=== PATIENT | male | born 1945 | race Caucasian/White ===

== ENCOUNTER 2020-05-29 12:57 | Inpatient (IN) | payer MEDICARE, MEDICAID, SELFPAY ==
[2020-05-29] VITALS (13 sets, daily range): BP systolic 92–126; BP diastolic 49–82; PULSE 65–95; RESP 15–26; TEMP 36.6–36.8; O2SAT 90–99; BMI 23.0
--- NOTE | 2020-05-29 13:09 | ECG_ITS ---
[facility] Test Date: 2020-05-29 Pat Name: Soto Washington Department: Room: Gender: Male Pocket Cutter: : 1945 Requested By: Sajan Fatima Order Number: [id number] Chelsi MD: Corine Luke M.D. Measurements Intervals [place] Rate: 88 P: 53 UT: 146 QRS: -49 QRSD: 149 T: 61 QT: 411 QTc: 500 Interpretive Statements SINUS RHYTHM WITH OCCASIONAL PREMATURE COMPLEXES RIGHT BUNDLE BRANCH BLOCK LEFT ANTERIOR FASCICULAR BLOCK [QRS AXIS <= -45, QR IN I, RS IN II] MINIMAL VOLTAGE CRITERIA FOR LVH, CONSIDER NORMAL VARIANT [MEETS CRITERIA IN ONE OF: R(aVL), S(V1), R(V5), R(V5/V6)+S(V1)] POSSIBLE ANTERIOR MYOCARDIAL INFARCTION , PROBABLY OLD [30 ms Q WAVE IN V3/V4, OR R < 0.2 mV IN V4] No previous ECG available for comparison Electronically Signed On 05-29-2020 22:19:55 MEASUREMENT TECHNICIAN by Corine Luke M.D. [id number]
--- NOTE | 2020-05-29 13:09 | XRR_ITS ---
PROCEDURE INFORMATION: Exam: XR Chest, 1 View Exam date and time: 05/29/2020 1:18 PM Age: 74 years old Clinical indication: Chest pain; Prior surgery; Surgery type: Pacemaker TECHNIQUE: Imaging protocol: XR of the chest Views: 1 view. COMPARISON: No relevant prior studies available. FINDINGS: Lungs: Linear densities left lower lobe consistent with atelectasis. No consolidation. Pleural space: Unremarkable. No pleural effusion. No pneumothorax. Heart/Mediastinum: Unremarkable. No cardiomegaly. Bones/joints: Unremarkable. Soft tissues: Cardiac pacemaker left anterior chest. XR/XR chest 1V portable [id number] IMPRESSION: 1. No acute findings. 2. Cardiac pacemaker left anterior chest
[2020-05-29 13:30] LABS: Basophils % 0.2 %; Eosinophils % 0.3 %; Hematocrit 32.1 % (42.0-52.0); Hemoglobin 9.6 g/dL (11.7-16.6); Lymphocytes % 9.2 %; Mean Corpuscular HGB Conc 29.9 g/dL (30.0-36.0); Mean Corpuscular Hemoglobin 28.5 pg (28.0-34.0); Mean Corpuscular Volume 95.3 fL (80-94); Mean Platelet Volume 9.4 fL (7.4-10.4); Monocytes # 0.8 10^3/uL (0.2-0.9); Monocytes % 7.2 %; Neutrophils # 8.81 10^3/uL (1.8-7.7); Neutrophils % 81.8 %; Nucleated Red Blood Cells % 0 %; Platelet Count 241 10^3/cmm (130-400); Red Blood Count 3.37 10^6/uL (4.1-5.3); Red Cell Distribution Width 14.6 % (12.1-15.1); White Blood Count 10.8 10^3/uL (4.0-10.0)
--- NOTE | 2020-05-29 13:45 | W.ED.CHESTPA ---
HPI - Chest Pain General: Chief Complaint: Chest Pain Stated Complaint: CHEST PAIN Time Seen by Provider: 05/29/20 13:05 History of Present Illness: HPI narrative: The patient is a 74-year-old male with past medical history coronary artery disease, multiple MIs and stenting, and a pacemaker. 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 He comes in today complaining of a short episode of left-sided chest pain at home. He took 4 baby aspirin's and did not take a nitroglycerin because the pain went away. He says the pain was midsternal and radiated to the left chest and felt exactly like his previous MIs. He has not had a stress test for approximately 12 years. He has no pain in the ER MD complaint: chest pain Pertinent past history: coronary artery disease and prior MD Timing of current episode: episodic and now resolved Onset: during rest Pain location: substernal Pain radiation: none Quality: heaviness Exacerbating factors: nothing Associated symptoms: Reports no associated symptoms; Deny abdominal pain, dyspnea or palpitations Review of Systems General: Reports: 10 or more systems reviewed and unremarkable except in HPI and below Const: Denies: fatigue Eyes: Denies: change in vision, blurry vision or eye redness ENMT: Denies: throat pain, swelling of lips/tongue, ear or mastoid pain or nasal congestion Card: Denies: chest pain, palpitations, irregular heart rhythm, edema, dyspnea on exertion or orthopnea Resp: Denies: dyspnea, productive cough or non-productive cough GI: Denies: abdominal pain, diarrhea or GI cramping : Denies: flank pain, urinary frequency or urinary urgency Musc: Denies: neck pain, back pain, extremity pain, joint pain, joint redness, limited range of motion or muscle weakness Skin/Breast: Denies: rash, pruritus, erythema, skin pain or skin tenderness Neuro: Denies: headache(s), numbness in extremities, weakness in extremities, sensory changes, difficulty walking, dizziness, confusion or Slurred speech present Psych: Denies: anxiety or depression Endo: Denies: polyuria All/Imm: Denies: urticaria, throat swelling or tongue swelling Physical Exam Const: COMMON NORMALS: no acute distress, average body habitus, patient oriented x3, no limitations, healthy appearing, alert and well nourished GENERAL APPEARANCE: cooperative, comfortable, well kempt and well developed ORIENTATION/CONSCIOUSNESS: Yes awake, Yes oriented to person, Yes oriented to place and Yes oriented to time HENMT: COMMON NORMALS: normocephalic, external ears normal and Normal external nose present HEAD & SCALP: normal to inspection and normocephalic NOSE: Normal external nose present EXTERNAL EAR: Yes external ears normal MOUTH: Normal oral and palatal mucosa present THROAT: posterior oropharynx normal Eye: COMMON NORMALS: Equal, round and reactive pupils present and EOMs intact bilaterally GENERAL EYE: appearance normal, both eyes and all related structures PUPIL: Yes Equal, round and reactive pupils present Neck/C-Spine: COMMON NORMALS: full ROM, no lymphadenopathy, no meningeal signs and no JVD GENERAL: Yes normal visual inspection Lymph: LYMPHATIC: no lymphadenopathy noted Chest: COMMONS NORMALS: normal inspection of the chest and normal palpation of entire chest wall Resp: COMMON NORMALS: normal respiratory effort, No retractions, No use of accessory muscles, clear to auscultation bilaterally and percussion normal EFFORT & INSPECTION: Yes able to speak in complete sentences AUSCULTATION: clear to auscultation bilaterally PERCUSSION: percussion normal Cardio: COMMON NORMALS: no JVD, regular rate, regular rhythm, S1 normal heart sound present, S2 normal heart sound present and Peripheral pulses 2+ throughout RATE: regular rate RHYTHM: regular rhythm HEART SOUNDS: S1 normal heart sound present and S2 normal heart sound present PERIPHERAL PULSES: Peripheral pulses 2+ throughout GI: COMMON NORMALS: Normal to inspection, nondistended, normoactive bowel sounds present, Soft to palpation, non-tender and no masses INSPECTION: Yes normal to inspection PALPATION: Yes Soft to palpation : COMMON NORMALS: Yes no CVA tenderness BLADDER/KIDNEY EXAM: Yes no CVA tenderness Back/Pelvis: COMMON NORMALS: no CVA tenderness, thoracic and lumbar spine normal to inspection, no thoracic nor lumbar tenderness and thoraco-lumbar ROM normal Extremity: COMMON NORMALS: normal to inspection, full ROM, capillary refill normal, no joint enlargement and no pedal edema GENERAL: Yes normal exam except as noted Neuro: COMMON NORMALS: patient oriented x3, CN's II-XII intact bilaterally, moves all extremities, no focal motor deficits, no sensory deficits noted and gait normal SENSORIUM/ORIENTATION: Yes alert, Yes oriented to person, Yes oriented to place and Yes oriented to time MENINGEAL SIGNS: Yes no meningeal signs Psych: COMMON NORMALS: mental status grossly normal, Normal thought process present, cooperative, normal affect and speech normal APPEARANCE: Yes well kempt ATTITUDE: Yes calm SPEECH: Yes normal speech THOUGHT PROCESS: Normal thought process present Skin: COMMON NORMALS: no rashes or lesions noted GENERAL SKIN EXAM: no rashes or lesions noted Course Vital Signs: Vital signs: Vital Signs Temperature 97.9 F 05/29/20 13:01 Pulse Rate 90 05/29/20 17:49 Respiratory Rate 21 H 05/29/20 15:27 Blood Pressure 107/57 05/29/20 17:49 Pulse Oximetry 94 05/29/20 17:49 MDM - Chest Pain MDM Narrative: Medical decision making narrative: The patient came in with an episode of chest pain at home. He has not had a stress test for 12 years and has a history of coronary artery disease, multiple stenting procedures, and a pacemaker. Troponin was normal. Telemetry and EKG show frequent PVCs and he will be held observation. Dr. Charles accepts upstairs. Dr. Tasha Price spoke with him on the phone and he will follow this patient. Lab Data: Labs: Lab Results 05/29/20 05/29/20 05/29/20 Range/Units 13:17 13:17 13:17 WBC 10.8 H (4.0-10.0) 10^3/ uL RBC 3.37 L (4.1-5.3) 10^6/u L Hgb 9.6 L (11.7-16.6) g/dL Hct 32.1 L (42.0-52.0) % MCV 95.3 H (80-94) fL MCH 28.5 (28.0-34.0) pg MCHC 29.9 L (30.0-36.0) g/dL RDW 14.6 (12.1-15.1) % Plt Count 241 (130-400) 10^3/c mm MPV 9.4 (7.4-10.4) fL Neut % (Auto) 81.8 % Lymph % (Auto) 9.2 % [place] % (Auto) 7.2 % Eos % (Auto) 0.3 % Baso % (Auto) 0.2 % Neut # (Auto) 8.81 H (1.8-7.7) 10^3/u L Lymph # (Auto) 1.0 (0.8-4.8) 10^3/u L [place] # (Auto) 0.8 (0.2-0.9) 10^3/u L Eos # (Auto) 0.0 (0.0-0.8) 10^3/u L Baso # (Auto) 0.0 (0.0-0.1) 10^3/u L Nucleated RBC % (a uto) 0 % Nucleated RBCs # 0.0 /100WBC D-Dimer 10.90 H (0-0.59) ug/mIFE U Sodium 134 L (136-145) mmol/L Potassium 2.9 L (3.5-5.1) mmol/L Chloride 93 L (98-107) mmol/L Carbon Dioxide 29 (22-29) mmol/L Anion Gap 14.9 (5-19) BUN 17 (8-23) mg/dL Creatinine 0.6 L (0.7-1.2) mg/dL GFR Calculation Not Reportable Glucose 221 H (65-115) mg/dL Calculated Osmolal ity 286 (285-295) mOsm/k g Calcium 9.3 (8.5-10.5) mg/dL Magnesium (1.7-2.3) mg/dL Total Bilirubin 0.8 (0.15-1.2) mg/dL AST 20 (0-40) U/L ALT 20 (0-41) U/L Alkaline Phosphata se 677 H (40-130) IU/L Creatine Kinase 156 (39-308) U/L Troponin T Baselin e (0-15) ng/L Troponin T 120 Min [place] (0-15) ng/L Delta Troponin T (0-10) ABS# NT-Pro-B Natriuret Pep 1624 H (0-125) pg/mL Total Protein 7.2 (6.6-8.7) g/dL Albumin 3.3 L (3.5-5.2) g/dL Globulin 3.9 (1.3-4.6) g/dL 05/29/20 05/29/20 05/29/20 Range/Units 13:17 13:17 15:08 WBC (4.0-10.0) 10^3/ uL RBC (4.1-5.3) 10^6/u L Hgb (11.7-16.6) g/dL Hct (42.0-52.0) % MCV (80-94) fL MCH (28.0-34.0) pg MCHC (30.0-36.0) g/dL RDW (12.1-15.1) % Plt Count (130-400) 10^3/c mm MPV (7.4-10.4) fL Neut % (Auto) % Lymph % (Auto) % [place] % (Auto) % Eos % (Auto) % Baso % (Auto) % Neut # (Auto) (1.8-7.7) 10^3/u L Lymph # (Auto) (0.8-4.8) 10^3/u L [place] # (Auto) (0.2-0.9) 10^3/u L Eos # (Auto) (0.0-0.8) 10^3/u L Baso # (Auto) (0.0-0.1) 10^3/u L Nucleated RBC % (a uto) % Nucleated RBCs # /100WBC D-Dimer (0-0.59) ug/mIFE U Sodium (136-145) mmol/L Potassium (3.5-5.1) mmol/L Chloride (98-107) mmol/L Carbon Dioxide (22-29) mmol/L Anion Gap (5-19) BUN (8-23) mg/dL Creatinine (0.7-1.2) mg/dL GFR Calculation Glucose (65-115) mg/dL Calculated Osmolal ity (285-295) mOsm/k g Calcium (8.5-10.5) mg/dL Magnesium 1.9 (1.7-2.3) mg/dL Total Bilirubin (0.15-1.2) mg/dL AST (0-40) U/L ALT (0-41) U/L Alkaline Phosphata se (40-130) IU/L Creatine Kinase (39-308) U/L Troponin T Baselin e 40 H (0-15) ng/L Troponin T 120 Min [place] 37.65 H (0-15) ng/L Delta Troponin T -2.35 L (0-10) ABS# NT-Pro-B Natriuret Pep (0-125) pg/mL Total Protein (6.6-8.7) g/dL Albumin (3.5-5.2) g/dL Globulin (1.3-4.6) g/dL Discharge Plan Discharge Patient Disposition: Placed in Observation Clinical Impression: Chest pain, Acute hypokalemia, Frequent PVCs, Multiple lung nodules Coding Level of Care Code ED Streetcar Starter for Chg Fwd Exam Comprehensive
[2020-05-29 14:09] LABS: Troponin(5th) Baseline 40 ng/L (0-15)
[2020-05-29 14:21] LABS: Alanine Aminotransferase 20 U/L (0-41); Albumin Level 3.3 g/dL (3.5-5.2); Alkaline Phosphatase 677 IU/L (40-130); Anion Gap 14.9 (5-19); Aspartate Amino Transferase 20 U/L (0-40); Blood Urea Nitrogen 17 mg/dL (8-23); Calcium 9.3 mg/dL (8.5-10.5); Carbon Dioxide 29 mmol/L (22-29); Chloride 93 mmol/L (98-107); Creatine Phosphokinase 156 U/L (39-308); Globulin 3.9 g/dL (1.3-4.6); Glucose 221 mg/dL (65-115); NT Pro B Type Natriuretic Pept 1624 pg/mL (0-125); Osmolality Calculated 286 mOsm/kg (285-295); Sodium 134 mmol/L (136-145); Total Bilirubin 0.8 mg/dL (0.15-1.2); Total Protein 7.2 g/dL (6.6-8.7)
[2020-05-29 14:30] LABS: Potassium 2.9 mmol/L (3.5-5.1)
--- NOTE | 2020-05-29 14:30 | CT_ITS ---
WS: [id number] CT CHEST ANGIOGRAPHY WITH REFORMATS HISTORY: r/o PE TECHNIQUE: Contiguous axial images are obtained through the chest during arterial injection of intrav enous contrast. Images are reconstructed to evaluate the pulmonary arteries. MIP imaging also reviewe d. All CT scans at [facility] use at least one of these dose optimization techniques: aut omated exposure control; mA and/or kV adjustment per patient size (includes targeted exams where dose is matched to clinical indication); or iterative reconstruction. CONTRAST: Omnipaque 350; 95 mL IV. DLP: 617.12 mGy.cm COMPARISON: None available. Opacification of the pulmonary arteries. There is no pulmonary embolism. Pulmonary artery is equal to the aorta. Moderate atherosclerosis thoracic aorta with no aneurysm. Mild enlargement LEFT heart jayna mbers. No pericardial or pleural effusions. Significant centrilobular emphysema. Bronchial thickening in the lower lung martinez there are numerous scattered pulmonary nodules, predominantly throughout the RIGHT lung. The largest nodule measures 8 mm along the superior RIGHT major fissure extending towards the RIGHT upper lobe. There are numerous additional nodules. Additional groundglass attenuation with tree-in-bud opacifications in the lower l flaquita martinez. There is bronchial distention with fluid in the LEFT lower lobe. Periaortic, paratracheal and hilar lymphadenopathy. The largest lymph nodes at the RIGHT hilum measure up to 14 mm in diamete r. Hepatic steatosis and hepatomegaly. Lobulated 2.2 cm mass in the LEFT adrenal gland. There is some ve ry small shoddy lymph nodes in the retroperitoneum. Severe spondylitic changes in the thoracic spine. CT/CT angio chest PE protcl [id number] IMPRESSION: 1. No pulmonary embolism. 2. Inflammatory changes at the lower lung martinez bilaterally. There are veronica us bilateral pulmonary nodules with the largest measuring 8 mm. Additional medi astinal and hilar adenopathy. Metastatic disease is not excluded. These nodules may be benign or malignant. The adenopathy may be reactive or neoplastic. 3. Stable LEFT adrenal gland nodule since 2009. 4. Bronchial wall thickening in the lower lung martinez with fluid or soft tissu e distention LEFT lower lobe. 5. Moderate LEFT heart enlargement.
[2020-05-29] MEDS: potassium chloride ER 20 mEq Tablet 40 MEQ PO (14:38)
--- NOTE | 2020-05-29 14:49 | PC.PHAR ---
pt brought in a note with the medications that he takes-pts states the pt has a build up of levothyroxine 125mcg and lisinopril 5mg states the pt had stop taking these 2 meds for a while and then restarted a while ago-pt states he doesnt take aspirin everyday but was told to take some today
[2020-05-29] MEDS: sodium chloride 0.9% 1,000 ML 999 ML IV (14:55)
--- NOTE | 2020-05-29 15:09 | ECG_ITS ---
[facility] Test Date: 2020-05-29 Pat Name: Soto Washington Department: Room: Gender: Male Decision Analyst: : 1945 Requested By: Sajna Fatima Order Number: [id number] Chelsi MD: Yung Cordova M.D. Measurements Intervals [place] Rate: 88 P: ID: QRS: -48 QRSD: 156 T: 52 QT: 447 QTc: 542 Interpretive Statements Sinus rhythm with occasional premature complexes RIGHT BUNDLE BRANCH BLOCK [120+ ms QRS DURATION, UPRIGHT V1, 40+ ms S IN I/aVL/V4/V5/V6] LEFT ANTERIOR FASCICULAR BLOCK [QRS AXIS <= -45, QR IN I, RS IN II] POSSIBLE ANTERIOR MYOCARDIAL INFARCTION , OF INDETERMINATE AGE [30 ms Q WAVE IN V3/V4, OR R < 0.2 mV IN V4] Compared to ECG 05/29/2020 13:11:49 Aberrant conduction of supraventricular beat(s) now present Sinus rhythm no longer present Myocardial infarct finding still present Electronically Signed On 05-30-2020 18:16:21 ATHLETICS TEACHER by Yung Cordova M.D. [id number]
[2020-05-29 15:45] LABS: Troponin 5 2HR 37.65 ng/L (0-15)
[2020-05-29 15:46] LABS: Troponin 5 2HR Delta -2.35 ABS# (0-10)
[2020-05-29] MEDS: iohexol 350 mg/mL 100 mL Btl IV (15:46)
[2020-05-29 16:59] LABS: Magnesium 1.9 mg/dL (1.7-2.3)
--- NOTE | 2020-05-29 17:19 | PM.CONSULT ---
Providers/Reason For Consult Consulting Physican/Specialty*: Yung Cordova MD/ Cardiology Reason for Consult*: Chest pain Requesting Physcian: Dr Fatima Primary Care Provider: Chante Sahni NP History of Present Illness History of Present Illness 74 year old male with past medical history of coronary artery disease, stents, CABG, history of irregular heartbeats, permanent pacemaker, congestive heart failure who presents to emergency room complaining of chest pain. According to patient he started noticing chest pain at 7 AM. Pain was substernal, severe in intensity and lasted for about 5 to 10 minutes. He had prior stents put in several years ago and he thought the pain was quite similar to his prior heart attack. Patient has not been having chest pains over the last few days. 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 He sees an oncologist in [facility]. However he has lost significant weight over the last 1 to 2 months. Says he has lost about 30 to 40 pounds. This was unintentional. Troponins have been negative so far. His EKG does not show significant ischemic changes however he does have PVCs. Review of Systems General: Reports: 10 or more systems reviewed and unremarkable except in HPI and below Const: Denies: fatigue Eyes: Denies: change in vision, blurry vision or eye redness ENMT: Denies: throat pain, swelling of lips/tongue, ear or mastoid pain or nasal congestion Card: Denies: chest pain, palpitations, irregular heart rhythm, edema, dyspnea on exertion or orthopnea Resp: Denies: dyspnea, productive cough or non-productive cough GI: Denies: abdominal pain, diarrhea or GI cramping : Denies: flank pain, urinary frequency or urinary urgency Musc: Denies: neck pain, back pain, extremity pain, joint pain, joint redness, limited range of motion or muscle weakness Skin/Breast: Denies: rash, pruritus, erythema, skin pain or skin tenderness Neuro: Denies: headache(s), numbness in extremities, weakness in extremities, sensory changes, difficulty walking, dizziness, confusion or Slurred speech present Psych: Denies: anxiety or depression Endo: Denies: polyuria All/Imm: Denies: urticaria, throat swelling or tongue swelling Meds/Allergies Home Medications and Allergies Home Medications Medication Instructions Recorded Confirmed Last Taken Type aspirin [Aspir-81] 324 mg PO ONCE 05/29/20 05/29/20 05/29/20 History carvedilol 3.125 mg PO BID@,05/29/20 05/29/20 05/28/20 History clopidogrel 75 mg PO DAILY@05/29/20 05/29/20 05/28/20 History ibuprofen 800 mg PO TID PRN 05/29/20 05/29/20 05/29/20 History latanoprost 1 drp OPHTHALMIC (EYE) EVERY OTHER 05/29/20 05/29/20 Unknown History DAY levothyroxine 125 mcg PO DAILY@05/29/20 05/29/20 05/29/20 History lisinopril 5 mg PO DAILY@05/29/20 05/29/20 05/28/20 History rosuvastatin 40 mg PO DAILY@05/29/20 05/29/20 05/28/20 History tamsulosin 0.4 mg PO DAILY@05/29/20 05/29/20 05/29/20 History Allergies Allergy/AdvReac Type Severity Reaction Status Date / Time erythromycin base Allergy Unknown Verified 05/29/20 14:40 spironolactone Allergy Unknown Verified 05/29/20 14:40 [From Aldactone] PFSH Acute PFSH: Medical History Coronary artery disease Hypertension Laryngeal cancer Surgical History History of throat surgery Vitals/I&O/Wt Last Vital Signs Temp 97.9 F 05/29/20 13:01 Pulse 94 05/29/20 17:10 Resp 21 H 05/29/20 15:27 BP 116/58 05/29/20 17:10 Pulse Ox 90 05/29/20 17:10 Weight last 48 hrs Weight 170 lb Physical Exam Narrative: EXAM NARRATIVE: GENERAL: Patient is alert, awake and oriented x3. [] NECK: No jugular vein distension. [] HEENT: No cyanosis. No icterus. No pallor. [] HEART: Regular S1 and S2. No murmur, rub or gallop. [] LUNGS: Has mild crackles laterally [] ABDOMEN: Soft, nontender and nondistended. Positive bowel sounds. No guarding, rebound or tenderness. [] CENTRAL NERVOUS SYSTEM: Grossly nonfocal. [] EXTREMITIES: Lower extremities with no edema bilaterally. Pulses palpable in the lower extremities, both dorsalis pedis and posterior tibial. [] A&P Assessment and plan (1) Chest pain: Status: Acute (2) Frequent PVCs: Status: Acute (3) Coronary artery disease: Status: Acute (4) Hypertension: Status: Acute Patient has significant coronary artery disease history and presented with chest pain which was similar to his symptoms of [place] in the past. Given his risk factors and prior coronary artery disease history, we will recommend nuclear stress test. Trend troponins Order echocardiogram If nuclear stress test is abnormal, will need to discuss with patient coronary angiography. He has a history of laryngeal cancer and has been losing weight over the last couple of months. Continue aspirin, Plavix and statin Thank you for involving us with care of this patient. We will continue to follow. Please call with questions Coding Level of Care Code Acute Magnet Maker for Asif Mcdonnell Diagnoses Chest pain R07.9 Frequent PVCs I49.3 Coronary artery disease I25.10 Hypertension I10
--- NOTE | 2020-05-29 17:21 | P.HP_ITS ---
Providers/Chief Complaint Primary Care Provider: Chante Sahni NP Chief Complaint: CHEST PAIN History of Present Illness Soto Washington is a 74 year old male with past medical history of coronary artery disease, stents, CABG, history of irregular heartbeats, permanent pacemaker, congestive heart failure who presents to emergency room complaining of chest pain. It is substernal nonradiating sharp pain. No modifying factors. Started around 7 AM. He states that it is resembling chest pain which he experienced during his heart attack years ago. He denies associated palpitations, dizziness or lightheadedness, diaphoresis. No fevers or chills. Denies cough. No hemoptysis. No nausea or vomiting. No diarrhea. He has history of laryngeal cancer. Status post surgery. According to the patient it is currently in remission. He has a an oncologist in [place], [place]. 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 Review of Systems General: Reports: 10 or more systems reviewed and unremarkable except in HPI and below Medications/Allergies Home Medications Medication Instructions Recorded Confirmed Last Taken Type aspirin [Aspir-81] 324 mg PO ONCE 05/29/20 05/29/20 05/29/20 History carvedilol 3.125 mg PO BID@05/29/20 05/29/20 05/28/20 History clopidogrel 75 mg PO DAILY@05/29/20 05/29/20 05/28/20 History ibuprofen 800 mg PO TID PRN 05/29/20 05/29/20 05/29/20 History latanoprost 1 drp OPHTHALMIC (EYE) EVERY OTHER 05/29/20 05/29/20 Unknown History DAY levothyroxine 125 mcg PO DAILY@05/29/20 05/29/20 05/29/20 History lisinopril 5 mg PO DAILY@05/29/20 05/29/20 05/28/20 History rosuvastatin 40 mg PO DAILY@05/29/20 05/29/20 05/28/20 History tamsulosin 0.4 mg PO DAILY@05/29/20 05/29/20 05/29/20 History Allergies Allergy/AdvReac Type Severity Reaction Status Date / Time erythromycin base Allergy Unknown Verified 05/29/20 14:40 spironolactone Allergy Unknown Verified 05/29/20 14:40 [From Aldactone] Vitals/I&O/Wt Last Vital Signs Temp 97.9 F 05/29/20 13:01 Pulse 94 05/29/20 17:10 Resp 21 H 05/29/20 15:27 BP 116/58 05/29/20 17:10 Pulse Ox 90 05/29/20 17:10 Weight last 48 hrs Weight 77.111 kg Physical Exam Narrative: EXAM NARRATIVE: The patient is awake alert and oriented. No acute distress. Mood and affect are appropriate. Responses are adequate. Skin is warm and dry. Moist mucous membranes Neck supple. No JVD Lungs slightly coarse breath sounds at the bases. No significant crackles. No respiratory distress. Heart S1, S2, irregular Abdomen soft, nontender, bowel sounds are present Extremities trace edema and venous stasis. No calf tenderness bilaterally. No cyanosis. Normal capillary refill. Neuro examination is nonfocal. Data : 05/29/20 13:17 05/29/20 13:17 Other Labs: Laboratory Results WBC 10.8 10^3/uL (4.0-10.0) H 05/29/20 13:17 RBC 3.37 10^6/uL (4.1-5.3) L 05/29/20 13:17 Hgb 9.6 g/dL (11.7-16.6) L 05/29/20 13:17 Hct 32.1 % (42.0-52.0) L 05/29/20 13:17 MCV 95.3 fL (80-94) H 05/29/20 13:17 MCH 28.5 pg (28.0-34.0) 05/29/20 13:17 MCHC 29.9 g/dL (30.0-36.0) L 05/29/20 13:17 RDW 14.6 % (12.1-15.1) 05/29/20 13:17 Plt Count 241 10^3/cmm (130-400) 05/29/20 13:17 MPV 9.4 fL (7.4-10.4) 05/29/20 13:17 Neut % (Auto) 81.8 % 05/29/20 13:17 Lymph % (Auto) 9.2 % 05/29/20 13:17 [place] % (Auto) 7.2 % 05/29/20 13:17 Eos % (Auto) 0.3 % 05/29/20 13:17 Baso % (Auto) 0.2 % 05/29/20 13:17 Neut # (Auto) 8.81 10^3/uL (1.8-7.7) H 05/29/20 13:17 Lymph # (Auto) 1.0 10^3/uL (0.8-4.8) 05/29/20 13:17 [place] # (Auto) 0.8 10^3/uL (0.2-0.9) 05/29/20 13:17 Eos # (Auto) 0.0 10^3/uL (0.0-0.8) 05/29/20 13:17 Baso # (Auto) 0.0 10^3/uL (0.0-0.1) 05/29/20 13:17 Nucleated RBC % (auto) 0 % 05/29/20 13:17 Nucleated RBCs # 0.0 /100WBC 05/29/20 13:17 D-Dimer 10.90 ug/mIFEU (0-0.59) H 05/29/20 13:17 Sodium 134 mmol/L (136-145) L 05/29/20 13:17 Potassium 2.9 mmol/L (3.5-5.1) L 05/29/20 13:17 Chloride 93 mmol/L (98-107) L 05/29/20 13:17 Carbon Dioxide 29 mmol/L (22-29) 05/29/20 13:17 Anion Gap 14.9 (5-19) 05/29/20 13:17 BUN 17 mg/dL (8-23) 05/29/20 13:17 Creatinine 0.6 mg/dL (0.7-1.2) L 05/29/20 13:17 GFR Calculation Not Reportable 05/29/20 13:17 Glucose 221 mg/dL (65-115) H 05/29/20 13:17 Calculated Osmolality 286 mOsm/kg (285-295) 05/29/20 13:17 Calcium 9.3 mg/dL (8.5-10.5) 05/29/20 13:17 Magnesium 1.9 mg/dL (1.7-2.3) 05/29/20 13:17 Total Bilirubin 0.8 mg/dL (0.15-1.2) 05/29/20 13:17 AST 20 U/L (0-40) 05/29/20 13:17 ALT 20 U/L (0-41) 05/29/20 13:17 Alkaline Phosphatase 677 IU/L (40-130) H 05/29/20 13:17 Creatine Kinase 156 U/L (39-308) 05/29/20 13:17 Troponin T Baseline 40 ng/L (0-15) H 05/29/20 13:17 Troponin T 120 Minute 37.65 ng/L (0-15) H 05/29/20 15:08 Delta Troponin T -2.35 ABS# (0-10) L 05/29/20 15:08 NT-Pro-B Natriuret Pep 1624 pg/mL (0-125) H 05/29/20 13:17 Total Protein 7.2 g/dL (6.6-8.7) 05/29/20 13:17 Albumin 3.3 g/dL (3.5-5.2) L 05/29/20 13:17 Globulin 3.9 g/dL (1.3-4.6) 05/29/20 13:17 Impressions Chest X-Ray 05/29/20 13:09 IMPRESSION: 1. No acute findings. 2. Cardiac pacemaker left anterior chest Chest CTA 05/29/20 14:30 IMPRESSION: 1. No pulmonary embolism. 2. Inflammatory changes at the lower lung martinez bilaterally. There are numerous bilateral pulmonary nodules with the largest measuring 8 mm. Additional mediastinal and hilar adenopathy. Metastatic disease is not excluded. These nodules may be benign or malignant. The adenopathy may be reactive or davis plastic. 3. Stable LEFT adrenal gland nodule since 2009. 4. Bronchial wall thickening in the lower lung maritnez with fluid or soft tissue distention LEFT lower lobe. 5. Moderate LEFT heart enlargement. EKG shows possible atrial fibrillation with PVCs. Q waves in anterior leads. No acute ischemic changes. A&P Additional A&P Information 74-year-old male with past medical history of coronary artery disease, stents, CABG, pacemaker, irregular heartbeats, congestive heart failure, laryngeal cancer in remission, hypertension, dyslipidemia, hypothyroidism who is presenting with chest pain. Chest pain. Currently resolved. We will admit the patient for observation to rule out acute coronary syndrome. We will continue home dual antiplatelet therapy, Coreg, and statin. Appreciate Dr. Ruth's help. Stress test in the morning. Mild hypotension present in ER. Received a bolus of IV fluids. Currently res olved. We will closely monitor him. We will hold his home lisinopril. Does not have evidence of infection or sepsis. Hypokalemia. Replaced in emergency room. Admitting level is within normal ran ge. We will continue monitoring and replacing his electrolytes. Anemia. Probably chronic. We will continue monitoring. History of congestive heart failure. Stable. No evidence of acute exacerba tion. History of dyslipidemia. We will check his fasting lipids in the morning. Bilateral pulmonary nodules concerning for metastatic lesions. Discussed with the patient and his who is at the bedside. I asked them to follow-up with the primary oncologist who is in [place]. They are also aware about adrenal mass for which they have follow-up appointment arranged with the primary care pr melody. They stated that they can make an appointment for the next week. DVT prophylaxis. He is on dual antiplatelet therapy. In order to prevent any complications I am not ordering anticoagulation. Teds and SCDs. Early ambulation. CODE STATUS. The patient wants to be full code. The plan of care was discussed with the patient and his . They verbalized understanding and agreement. Attestations Medical Necessity Statement*: Observation Coding Level of Care Code Acute Stopperer Assembler for Asif Mcdonnell
[2020-05-29 18:28] LABS: SARS Covid-2 Antigen Negative (Negative)
--- NOTE | 2020-05-29 19:09 | ECG_ITS ---
[facility] Test Date: 2020-05-29 Pat Name: Soto Washington Department: Room: 103 Gender: Male Director Of Acquisition Marketing: ALBER FLORES: 1945 Requested By: Sajan Fatima Order Number: [id number] Chelsi MD: Yung Cordova M.D. Measurements Intervals Omar Rate: 91 P: OK: QRS: -54 QRSD: 152 T: 35 QT: 429 QTc: 530 Interpretive Statements Sinus rhythm with occasional PVCs and PACs RIGHT BUNDLE BRANCH BLOCK [120+ ms QRS DURATION, UPRIGHT V1, 40+ ms S IN I/aVL/V4/V5/V6] LEFT ANTERIOR FASCICULAR BLOCK [QRS AXIS <= -45, QR IN I, RS IN II] POSSIBLE ANTERIOR MYOCARDIAL INFARCTION [30 ms Q WAVE IN V3/V4, OR R < 0.2 mV IN V4], PROBABLY OLD Compared to ECG 05/29/2020 15:21:59 No significant changes Electronically Signed On 05-30-2020 18:15:55 RETAIL LOSS PREVENTION INVESTIGATOR by Yung Cordova M.D. [id number]
[2020-05-29 19:49] LABS: Urine Appearance Hazy (CLEAR); Urine Color Dark Yellow (Yellow); pH Urine 5 (5-7)
[2020-05-29 19:50] LABS: Add Urine Microscopic? YES; Bilirubin Urine 1+ (Negative); Blood Urine Trace (Negative); Glucose Urine UA Norm (Normal); Ketones Urine Negative (Negative); Leukocyte Esterase Urine Negative (Negative); Nitrate Urine Positive (Negative); Protein Urine Trace (Negative); Urobilinogen Urine 1 mg/dL (Negative)
[2020-05-29 19:58] LABS: Add Urine Culture? Yes; Bacteria Urine 4+ /hpf; Mucus Urine 4+ /hpf; RBC Urine 0-4 /hpf (0-2); Squamous Epithelial Cell Urine 0-4 /hpf (0-5)
[2020-05-29 20:17] LABS: Troponin 5 6HR 34.44 ng/L (0-15)
[2020-05-29 20:28] LABS: Troponin 5 6HR Delta -5.56 ng/L (0-12)
[2020-05-29] MEDS: atorvastatin 40 mg Tablet 80 MG PO (20:33)
[2020-05-29] MEDS: carvedilol 3.125 mg Tablet PO (20:34)
[2020-05-30] VITALS (8 sets, daily range): BP systolic 92–117; BP diastolic 52–71; PULSE 70–102; RESP 12–28; TEMP 35.8–36.8; O2SAT 95–98
[2020-05-30 05:09] LABS: Basophils % 0.2 %; Eosinophils # 0.1 10^3/uL (0.0-0.8); Eosinophils % 0.5 %; Hematocrit 27.1 % (42.0-52.0); Hemoglobin 8.2 g/dL (11.7-16.6); Lymphocytes # 0.9 10^3/uL (0.8-4.8); Mean Corpuscular HGB Conc 30.3 g/dL (30.0-36.0); Mean Corpuscular Hemoglobin 28.7 pg (28.0-34.0); Mean Corpuscular Volume 94.8 fL (80-94); Mean Platelet Volume 9.9 fL (7.4-10.4); Monocytes # 0.7 10^3/uL (0.2-0.9); Monocytes % 7.4 %; Neutrophils # 8.01 10^3/uL (1.8-7.7); Nucleated Red Blood Cells % 0 %; Platelet Count 235 10^3/cmm (130-400); Red Blood Count 2.86 10^6/uL (4.1-5.3); Red Cell Distribution Width 14.7 % (12.1-15.1); White Blood Count 9.9 10^3/uL (4.0-10.0)
[2020-05-30 05:41] LABS: Procalcitonin 0.12 ng/mL (0-0.5)
[2020-05-30 05:54] LABS: Chol HDL Ratio 3.45 mg/dL (1.0-5.00); Cholesterol 107 mg/dL (0-200); HDL Cholesterol 31 mg/dL (60-100); LDL Cholesterol Calculated 61 mg/dL (50-129); LDL HDL Ratio 1.97 RATIO (0.00-3.22); Triglycerides 77 mg/dL (0-150)
[2020-05-30] MEDS: levothyroxine 125 mcg Tablet PO (06:40)
--- NOTE | 2020-05-30 06:47 | ECG_ITS ---
[facility] Test Date: 2020-05-30 Pat Name: Soto Washington Department: Room: 103 Gender: Male Cat Swamper: : 1945 Requested By: Yung Cordova Order Number: [id number] Chelsi MD: Yung Cordova M.D. Interpretive Statements NAME OF STUDY: LEXISCAN SESTAMIBI STRESS TEST INDICATION: [Chest Pain, ] Procedure: At the baseline, the blood pressure was 134/80 mmHg, heart rate of 95 bpm. The electrocardiogram showed normal sinus rhythm, left axis deviation with normal ST and T waves. Occasional PVC was seen. The Lexiscan was infused over a duration of 20 seconds. A total of 0.4 mg of Lexiscan was infused. The stress phase was continued for a total of 5 minutes. Heart rate at the end of the stress phase was 97 bpm. Blood pressure was 89/61 mmHg. The EKG at peak infusion revealed sinus tachycardia with no significant ST-T wave changes. Frequent PVCs were seen Sestamibi was injected 20 seconds after the Lexiscan infusion. Blood pressure at the end of recovery phase was 97/54 mmHg with a heart rate of 104 bpm. EKG revealed sinus tachycardia with frequent PACs. Conclusion: 1. Normal EKG response to Lexiscan infusion. 2. No Lexiscan induced chest pain or cardiac arrhythmia. 3. Normal blood pressure and heart rate response. 4. Sestamibi/sestamibi perfusion scan pending; see separate report. Electronically Signed On 06-17-2020 13:40:06 CONTRACTING ANALYST by Yung Cordova M.D. [id number]
[2020-05-30 07:46] LABS: Anion Gap 12.3 (5-19); Blood Urea Nitrogen 16 mg/dL (8-23); Carbon Dioxide 29 mmol/L (22-29); Chloride 98 mmol/L (98-107); Glucose 159 mg/dL (65-115); Magnesium 1.7 mg/dL (1.7-2.3); Osmolality Calculated 287 mOsm/kg (285-295); Potassium 3.3 mmol/L (3.5-5.1); Sodium 136 mmol/L (136-145)
--- NOTE | 2020-05-30 08:00 | NMCV_ITS ---
NM kimberlyn perf SPECT r/s* [id number] Soto Washington Age: 74 Gender: M : 1945 Exam Date: 05/30/2020 07:31 Ordering Phys: Juan Knox MD Technologist: KERLINE Barksdale Exam Location: [facility] Indications: Chest pain STRESS TEST Please see separate stress test report in [facility] for full findings IMAGE PROTOCOL Rest/Stress 1 Lexiscan Day Radiopharmaceutical Dose (mCi) Administration Site Administered by Rest: Tc-99m 10.6 IV KERLINE Britt Sestamibi Stress:Tc-99m 32.4 IV KERLINE Barksdale Sestamiyas Rest: 30-May-2020 60 Discovery 630 Stress: 30-May-2020 45 Discovery 630 0.4mg Lexiscan. Supine position only as patient was unable to lay prone. SPECT RESULTS Technical Quality: Excellent Raw Data Analysis: Normal Image Corrections: No attenuation or motion correction applied Summed Stress Score: 25 Summed Rest Score: 24 Summed Difference Score: 2 PERFUSION FINDINGS There is a large in size fixed perfusion defect in the inferior and inferolateral chavez. This likely represents prior infarct. Apical lateral and mid anterolateral chavez have a moderate sized mostly reversible perfusion defect. This likely represents ischemia in left circumflex artery territory. FUNCTIONAL RESULTS (calculated via Gated SPECT) Stress Image LV EF (%): 41 Stress EDV (mL):172 TID: 1.04 Stress ESV (mL):101 FUNCTIONAL FINDINGS: LV systolic function is mildly reduced with EF of 41%. IMPRESSIONS 1. There is a large sized fixed perfusion defect in inferior and inferolateral chavez consistent with prior infarct. 2. There is a moderate-sized mostly reversible perfusion defect in apical lateral and mid anterolateral chavez. This is consistent with ischemia and left circumflex artery territory. 3. LV systolic function is mildly reduced with EF of 41%. Yung Cordova MD (Electronically Signed) Final Date: 30 May 2020 10:16 C MTDD
[2020-05-30] MEDS: regadenoson 0.4 Mg/5 ml Syringe IVP (08:28)
[2020-05-30] MEDS: clopidogrel 75 mg Tablet PO (08:53)
[2020-05-30] MEDS: carvedilol 3.125 mg Tablet PO ×2 (08:53→18:48)
[2020-05-30] MEDS: tamsulosin 0.4 mg Capsule PO (08:53)
--- NOTE | 2020-05-30 09:25 | PC.CHAP ---
Pastoral Care Encounter/Spiritual Assessment Type of Contact [] Declined healthcare financial analyst visit [] Patient/Family/Request visit [] Outpatient visit [] Follow-up visit [] Physician referral [] Code/Alert [] Routine visit [] Staff referral [] Actively dying [] Patient sleeping [] Family support [] [x] Out of room [] Palliative care [] [] Receiving care in room [] Pre-surgical visit [] Trauma [] Long length of stay [] ICU visit [] Other: Relational/Emotional Strength [] Patient feels connected with others/family/visitors/staff [] Distress [] Loneliness/isolation [] Abandonment Spirituality of Patient [] Person of Katie [] Attends Adventism of their Katie [] Believes in Prayer [] Reads Bible or Uatsdin materials [] There are Spiritual issues to be addressed Crisis Nurse Interventions [x] Prayer [] Active listening [] Non-anxious presence [] Spiritual/emotional support [] Crisis/trauma care [] Spiritual counseling [] Bereavement support [] Provided bereavement packet [] Provided Bible/devotional materials [] Provided toy/stuffed animal, coloring book to patient or family member [] Provided Communion [] Anointing/[place] [] Salvation [x] Completed spiritual assessment [] Other: Impact on Illness or Injury [] Angry [] Fearful [] Anxious [] Often cries [] Exhaustion [] Unable to work [] Unable to attend advent [] Unable to walk/stand [] Unable to read [] Unable to drive [] Unable to eat/drink [] Unable to sleep [] Unable to be with family [] Patient intubated [] Other: Summary Time spent with patient
--- NOTE | 2020-05-30 09:34 | PC.NURSE ---
patient back on unit from Stress test; patient alert and oriented and in stable condition
--- NOTE | 2020-05-30 09:47 | PC.NURSE ---
Dr. Porter on unit for assessment and discussion of plan of care; Verbal orders to start [place] 5/253 Q6H PRN for pain, and cardiac Diet
[2020-05-30] MEDS: HYDROcodone-acetaminophen 5-325 mg Tablet 1 TAB PO (09:52)
[2020-05-30] MEDS: potassium chloride ER 20 mEq Tablet 40 MEQ PO (10:31)
--- NOTE | 2020-05-30 11:12 | P.PN_ITS ---
Subjective Subjective: Interval history: Patient had a stress test performed today. It shows fixed defect of inferior wall and inferolateral wall. There is a moderate sized mostly reversible defect in apical lateral and anterolateral chavez. Patient did not have further episodes of chest pain. He is overall feeling well. Vitals/I&O/Wt Last Vital Signs Temp 97.1 F L 05/30/20 10:48 Pulse 85 05/30/20 10:48 Resp 28 H 05/30/20 10:48 BP 92/52 05/30/20 10:48 Pulse Ox 96 05/30/20 10:48 05/29/20 05/30/20 05/30/20 22:59 06:59 14:59 Intake Total 1000 / 1000 0 / 1000 Output Total 250 / 250 Balance 1000 / 1000 0 / 1000 -250 / -250 Weight last 48 hrs Weight 170 lb Physical Exam Narrative: EXAM NARRATIVE: GENERAL: Patient is alert, awake and oriented x3. [] NECK: No jugular vein distension. [] HEENT: No cyanosis. No icterus. No pallor. [] HEART: Regular S1 and S2. No murmur, rub or gallop. [] LUNGS: Has mild crackles laterally [] ABDOMEN: Soft, nontender and nondistended. Positive bowel sounds. No guarding, rebound or tenderness. [] CENTRAL NERVOUS SYSTEM: Grossly nonfocal. [] EXTREMITIES: Lower extremities with no edema bilaterally. Pulses palpable in the lower extremities, both dorsalis pedis and posterior tibial. [] Data : 05/30/20 04:12 05/30/20 04:12 A&P Assessment and plan (1) Chest pain: Status: Acute (2) Frequent PVCs: Status: Acute (3) Coronary artery disease: Status: Acute (4) Hypertension: Status: Acute Patient has significant coronary artery disease history and presented with chest pain which was similar to his symptoms of [place] in the past. Stress test was abnormal. Echocardiogram showed LV EF of 40 to 45%. Regional wall motion maladies cannot be assessed because of limited visualization. Given his symptoms and abnormal stress test along with significant prior coronary artery disease history, we will proceed with coronary angiography with possible percutaneous coronary intervention tomorrow. N.p.o. past midnight. Continue aspirin, Plavix and statin Thank you for involving us with care of this patient. We will continue to follow. Please call with questions Attestations Medical Necessity Statement*: Care expected to cross 2 midnights. Coding Level of Care Code Acute Senior Java Data Architect for Jjg Fwd Diagnoses Chest pain R07.9 Frequent PVCs I49.3 Coronary artery disease I25.10 Hypertension I10
--- NOTE | 2020-05-30 13:03 | PM.PN ---
Subjective Subjective: Interval history: Underwent nuclear stress test. His circumflex artery disease. Discussed with Dr. Cordova. The patient is doing okay otherwise. Denies active chest pain. No shortness of breath or diaphoresis. Medications: Reviewed: Yes Medication Review Details: Generic Name Dose Route Start Last Admin Trade Name Freq PRN Reason Stop Dose Admin Hydrocodone Bitart /Acetaminophen 1 tab 05/30/20 09:45 05/30/20 09:52 Hydrocodone-Acet aminophen 5-325 Mg Tablet PO 1 tab Q6H PRN Administration MODERATE PAIN Atorvastatin Calci um 80 mg 05/29/20 19:00 05/29/20 20:33 Atorvastatin 40 Mg Tablet PO 80 mg DAILY@19 RADHA Administration Carvedilol 3.125 mg 05/29/20 19:00 05/30/20 08:53 Carvedilol 3.125 Mg Tablet PO 3.125 mg BID@08, RADHA Administration Clopidogrel Bisulf ate 75 mg 05/30/20 08:00 05/30/20 08:53 Clopidogrel 75 M g Tablet PO 75 mg DAILY@08 RADHA Administration Levothyroxine Sodi um 125 mcg 05/30/20 06:00 05/30/20 06:40 Levothyroxine 12 5 Mcg Tablet PO 125 mcg DAILY@06 RADHA Administration Tamsulosin HCl 0.4 mg 05/30/20 08:00 05/30/20 08:53 Tamsulosin 0.4 M g Capsule PO 0.4 mg DAILY@08 RADHA Administration Vitals/I&O/Wt Last Vital Signs Temp 97.1 F L 05/30/20 10:48 Pulse 85 05/30/20 10:48 Resp 28 H 05/30/20 10:48 BP 92/52 05/30/20 10:48 Pulse Ox 96 05/30/20 10:48 05/29/20 05/30/20 05/30/20 22:59 06:59 14:59 Intake Total 1000 / 1000 0 / 1000 240 / 240 Output Total 250 / 250 Balance 1000 / 1000 0 / 1000 -10 / -10 Weight last 48 hrs Weight 77.111 kg Physical Exam Narrative: EXAM NARRATIVE: The patient is awake alert and oriented. No acute distress. Mood and affect are appropriate. Responses are adequate. Skin is warm and dry. Moist mucous membranes Neck supple. No JVD Lungs slightly coarse breath sounds at the bases. No significant crackles. No respiratory distress. Heart S1, S2, irregular Abdomen soft, nontender, bowel sounds are present Extremities trace edema and venous stasis. No calf tenderness bilaterally. No cyanosis. Normal capillary refill. Neuro examination is nonfocal. Data : 05/30/20 04:12 05/30/20 04:12 A&P Additional A&P Information 74-year-old male with past medical history of coronary artery disease, stents, CABG, pacemaker, irregular heartbeats, congestive heart failure, laryngeal cancer in remission, hypertension, dyslipidemia, hypothyroidism who is presenting with chest pain. Chest pain secondary to acute coronary syndrome/coronary artery disease. Circumflex artery disease. Continuing management per Dr. Cordova's recommendations. Cardiac catheterization is scheduled for tomorrow. Discussed with the patient and answered to his questions. He verbalized understanding and agreement with the plan of care. Mild hypotension present in ER. Received a bolus of IV fluids. Currently resolved. We will closely monitor him. We will hold his home lisinopril. Does not have evidence of infection or sepsis. Hypokalemia. Replace and monitor. Anemia. Probably chronic. Stable. We will continue monitoring. History of congestive heart failure. Stable. No evidence of acute exacerbation. History of dyslipidemia. Well-controlled. Continue Lipitor. Bilateral pulmonary nodules concerning for metastatic lesions. Discussed with the patient and his yesterday. I asked them to follow-up with the primary oncologist who is in [place]. They are also aware about adrenal mass for which they have follow-up appointment arranged with the primary care provider. They stated that they can make an appointment for the next week. DVT prophylaxis. Teds and SCDs. Ample ambulation. CODE STATUS. Full code. Attestations Medical Necessity Statement*: Cardiac catheterization is scheduled for tomorrow Coding Level of Care Code Acute Shipper And Receiving for Asif Mcdonnell
--- NOTE | 2020-05-30 16:37 | PC.NURSE ---
Verbal permission from Dr. Knox for significant other, Terri to arrive before angiogram tomorrow to be with patient.
--- NOTE | 2020-05-30 17:34 | USCV_ITS ---
Felix Soto Age: 74 Gender: M : 1945 Exam Date: 05/30/2020 06:51 Ordering Phys: Yung Cordova M.D ([email or web address]) Technologist: Girma Carrasquillo [place] [facility] [place]: [place]ST PAIN BP: 105 / 66 HR: 88 Rhythm: Sinus Technical Quality: Adequate MEASUREMENTS (Male / Female) Normal Values 2D ECHO LV Diastolic Diameter PLAX 6.0 cm 4.2 - 5.9 / 3.9 - 5.3 cm LV Systolic Diameter PLAX 5.2 cm IVS Diastolic Thickness 1.2 cm 0.6 - 1.0 / 0.6 - 0.9 cm IVS Systolic Thickness 1.4 cm LVPW Diastolic Thickness 1.1 cm 0.6 - 1.0 / 0.6 - 0.9 cm LVPW Systolic Thickness 1.6 cm LVOT Diameter 2.1 cm LV Ejection Fraction 2D Teich 26.2 % LV Ejection Fraction MOD 2C 47.0 % LV Ejection Fraction 2C AL 49.7 % LA Diameter 3.9 cm LA Width 4.0 cm LA Height 5.7 cm RA Width 4.2 cm RA Height 6.2 cm Aorta at Sinotubular Diameter 3.0 cm M-MODE LV Diastolic Diameter MM 6.4 cm 4.2 - 5.9 / 3.9 - 5.3 cm LV Systolic Diameter MM 4.7 cm LV Ejection Fraction MM Teich 51.5 % IVS Diastolic Thickness MM 1.1 cm 0.6 - 1.0 / 0.6 - 0.9 cm IVS Systolic Thickness MM 2.0 cm LVPW Diastolic Thickness MM 1.4 cm 0.6 - 1.0 / 0.6 - 0.9 cm LVPW Systolic Thickness MM 1.5 cm RV Diastolic Diameter MM 1.4 cm Aortic Annulus Diameter 3.8 cm LA Ao Ratio MM 1.3 MV E Point Septal Separation 1.1 cm DOPPLER AV Peak Velocity 128.3 cm/s LVOT Peak Velocity 95.0 cm/s AV Area Cont Eq vti 2.7 cm squared AV Area Cont Eq pk 2.5 cm squared MV Area PHT 5.0 cm squared Mitral E to A Ratio 0.9 MV E' Velocity 41.0 cm/s Mitral E to MV E' Ratio 11.6 Mitral E to LV E' Lateral Ratio 9.5 Mitral E to LV E' Septal Ratio 14.9 TR Peak Velocity 302.7 cm/s TR Peak Gradient 36.6 mmHg TV Peak E Velocity 84.0 cm/s Right Atrial Pressure 3.0 mmHg Pulmonary Artery Systolic Pressu 39.6 mmHg PV Peak Velocity 88.0 cm/s FINDINGS Left Ventricle Left ventricle is dilated. Systolic function is mild to moderately reduced with EF of 40 to 45%. Regional wall motion abnormalities cannot be assessed because of limited visualization. Diastolic function is abnormal. Right Ventricle The right ventricle is normal in size and function. Right Atrium The right atrium is normal in size. Left Atrium The left atrium is normal in size. Mitral Valve Structurally normal mitral valve without significant stenosis or prolapse. There is mild to moderate mitral regurgitation. Aortic Valve Grossly normal. No significant aortic stenosis is seen. There is no aortic regurgitation. Tricuspid Valve Structurally normal tricuspid valve without significant stenosis or regurgitation. Insufficient TR jet to calculate RVSP. Pulmonic Valve Structurally normal pulmonic valve without significant stenosis. There is trace pulmonic regurgitation. Pericardium Normal pericardium without effusion. Aorta Normal ascending aorta dimension. CONCLUSIONS This is a limited quality echocardiogram. LV is mildly dilated. LV systolic function is mild to moderately reduced with EF of 40 to 45%. Regional wall motion abnormalities cannot be assessed because of limited quality images. Diastolic function is abnormal. There is mild to moderate mitral regurgitation seen. No comparison studies are available. Yung Cordova MD (Electronically Signed) Final Date: 30 May 2020 09:28 S
[2020-05-30] MEDS: atorvastatin 40 mg Tablet 80 MG PO (18:47)
[2020-05-31] VITALS (20 sets, daily range): BP systolic 58–112; BP diastolic 31–77; PULSE 68–84; RESP 0–32; TEMP 35.8–36.8; O2SAT 87–98
[2020-05-31 04:48] LABS: Basophils % 0.2 %; Eosinophils # 0.2 10^3/uL (0.0-0.8); Eosinophils % 2.1 %; Hematocrit 26.3 % (42.0-52.0); Lymphocytes # 0.8 10^3/uL (0.8-4.8); Lymphocytes % 9.8 %; Mean Corpuscular HGB Conc 30.4 g/dL (30.0-36.0); Mean Corpuscular Hemoglobin 28.9 pg (28.0-34.0); Mean Corpuscular Volume 94.9 fL (80-94); Mean Platelet Volume 9.6 fL (7.4-10.4); Monocytes # 0.6 10^3/uL (0.2-0.9); Monocytes % 7.2 %; Neutrophils # 6.48 10^3/uL (1.8-7.7); Neutrophils % 79.4 %; Nucleated Red Blood Cells % 0 %; Platelet Count 211 10^3/cmm (130-400); Red Blood Count 2.77 10^6/uL (4.1-5.3); Red Cell Distribution Width 14.6 % (12.1-15.1); White Blood Count 8.2 10^3/uL (4.0-10.0)
[2020-05-31 05:19] LABS: Albumin Level 2.7 g/dL (3.5-5.2); Anion Gap 11.9 (5-19); Blood Urea Nitrogen 24 mg/dL (8-23); Calcium 8.8 mg/dL (8.5-10.5); Carbon Dioxide 29 mmol/L (22-29); Chloride 102 mmol/L (98-107); Glucose 177 mg/dL (65-115); Phosphorus 1.7 mg/dL (2.5-4.5); Potassium 3.9 mmol/L (3.5-5.1); Sodium 139 mmol/L (136-145)
[2020-05-31] MEDS: levothyroxine 125 mcg Tablet PO (05:22)
[2020-05-31 05:23] LABS: Magnesium 1.8 mg/dL (1.7-2.3)
[2020-05-31] MEDS: clopidogrel 75 mg Tablet PO (08:29)
[2020-05-31] MEDS: tamsulosin 0.4 mg Capsule PO (08:29)
[2020-05-31] MEDS: carvedilol 3.125 mg Tablet PO (08:29)
--- NOTE | 2020-05-31 08:33 | PC.NURSE ---
patient reports he has not been taking the eye drops on jul
--- NOTE | 2020-05-31 09:11 | PM.PN ---
Subjective Subjective: Interval history: Doing okay. No significant complaints. No chest pain. No shortness of breath. Medications: Reviewed: Yes Vitals/I&O/Wt Last Vital Signs Temp 97.7 F 06/01/20 07:19 Pulse 85 06/01/20 07:19 Resp 19 H 06/01/20 07:19 BP 121/70 06/01/20 07:19 Pulse Ox 97 06/01/20 07:19 05/31/20 06/01/20 06/01/20 22:59 06:59 14:59 Intake Total 120 / 240 360 / 360 Output Total 450 / 450 350 / 800 150 / 150 Balance -330 / -210 -350 / -560 210 / 210 Physical Exam Narrative: EXAM NARRATIVE: The patient is awake alert and oriented. No acute distress. Mood and affect are appropriate. Responses are adequate. Skin is warm and dry. Moist mucous membranes Neck supple. No JVD Lungs slightly coarse breath sounds at the bases. No significant crackles. No respiratory distress. Heart S1, S2, regular Abdomen soft, nontender, bowel sounds are present Extremities trace edema and venous stasis. No calf tenderness bilaterally. No cyanosis. Normal capillary refill. Neuro examination is nonfocal. Data : 05/31/20 04:33 05/31/20 04:33 Micro: Microbiology 05/29/20 18:00 Urine Culture - Preliminary Urine,Clean Catch Gram Negative Rods A&P Additional A&P Information 74-year-old male with past medical history of coronary artery disease, stents, CABG, pacemaker, irregular heartbeats, congestive heart failure, laryngeal cancer in remission, hypertension, dyslipidemia, hypothyroidism who is presenting with chest pain. Chest pain secondary to acute coronary syndrome/coronary artery disease. Circumflex artery disease. Continuing management per Dr. Cordova's recommendations. Cardiac catheterization is scheduled for tomorrow. Discussed with the patient and answered to his questions. He verbalized understanding and agreement with the plan of care. Mild hypotension present in ER. Received a bolus of IV fluids. Currently resolved. We will closely monitor him. We will hold his home lisinopril. Does not have evidence of infection or sepsis. Hypokalemia. Replace and monitor. Anemia. Probably chronic. Stable. We will continue monitoring. History of congestive heart failure. Stable. No evidence of acute exacerbation. History of dyslipidemia. Well-controlled. Continue Lipitor. Bilateral pulmonary nodules concerning for metastatic lesions. Discussed with the patient and his yesterday. I asked them to follow-up with the primary oncologist who is in [place]. They are also aware about adrenal mass for which they have follow-up appointment arranged with the primary care provider. They stated that they can make an appointment for the next week. DVT prophylaxis. Teds and SCDs. Ample ambulation. CODE STATUS. Full code. [place] 05/31/20 This is a late entry. This progress note is for May 31, 2020. The patient is doing well. Pending cardiac catheterization. Continue current management without changes today. Discussed with Dr. Cordova. Attestations Medical Necessity Statement*: Possible discharge tomorrow. Coding Level of Care Code Acute Senior Benefits Analyst for Asif Mcdonnell
--- NOTE | 2020-05-31 09:29 | XACV_ITS ---
Exam Room: [facility] Ht: 183 cm Wt: 77 kg BSA: 1.98 m2 Gender: Male : 1945 Any Known Allergies: Other Exam Priority: Routine Procedure(s): Procedure Description: Diagnostic procedure Procedure Description: Coronary Angiography Procedure Description: Pressure Wire Diagnostic Cath Status: Urgent Diagnostic Findings * LAD arises from * left coronary cusp. LAD is a large vessel. Gives rise to 3 medium sized diagonal branches. * No significant stenosis is seen in LAD. * RCA arises from right coronary cusp. It has mild luminal irregularities. No significant stenosis is seen.. * Left circumflex artery arises from left coronary cusp. * Has moderate proximal LCx disease with 40 to 50% stenosis. There is another 40 to 50% stenosis in mid LCx. pCIRC: Moderate 50% stenosis, OTILIO: 3 flow. As left circumflex territory showed evidence of ischemia on stress test, plan was to perform FFR as lesions looked mild to moderate.. * Proximal and * mid Circumflex Coronary Artery: Moderate 50% stenosis, OTILIO: 3 flow. * Separate ostia for LAD and left circumflex artery. * Coronary angiography shows right dominance. Interventional Findings * We engaged the left circumflex artery using XB 3.5 guide catheter. After zeroing and equalizing the pressure wire, we advanced the pressure wire across the 2 stenosis in the left circumflex artery. IV adenosine was run and FFR was obtained. An FFR value of 0.92 was recorded. No drift was seen. Pressure wire and guide catheter were removed. Patient left the cardiac Reclaimer in stable condition.. Conclusions 1. There is moderate coronary artery disease with one vessel disease (left circumflex artery). 2. Separate ostia of LAD and left circumflex artery seen. 3. FFR is non- 4. ischemic for left circumflex artery. Recommendations * Aggressive risk factor modification. * Medical therapy is advised. Interventional RX Recommendation: medical therapy and/or counseling Diagnostic RX Recommendation: medical therapy and/or counseling Anticoagulation: Heparin Pressures Phase:Rest AO : 166 / 76 ( 80 ) @ 10:01:00 AM Clinical Evaluation EBL: 5mL-10mL Procedural Details Procedure Consent Obtained. Pre-Procedure Time Out. Identified patient by full name and date of as verbalized by the patient/guarantor. Does the consent match the physician's order: Yes. Accurate & Complete Informed Consent: Yes. Inpatient/Outpatient History & Physical on Chart: Yes. If H&P is completed, is and addenduem needed: No; If yes, is the addendum complete: N/A. Visualize and Verify Site with Patient/Guarantor: N/A. Relevant Radiology Images available: Yes. Pre-op teaching completed and patient verbalized understanding. The risks, benefits, and alternatives of sedation and/or procedure were discussed by physician. The patient agrees to continue. Procedure started. Correct patient, site and procedure confirmed by cath team. Current diagnosis: Chest Pain. PERRLA. Strong, equal hand rn palliative care bilaterally. Lungs clear x 5 lobes. IV Site on Arrival: 20 gauge in the right anticubital. IV Fluids: 0.9% NaCl at KVO. 0 mL infused prior to laborer steel handling. Pre Procedural Pulses: bilateral dorsalis pedis was 2+. Pre Procedural Pulses: bilateral posterior tibial was 2+. Pre Procedural Pulses: bilateral radial was 2+. Oxygen started at at 5lpm via oxymask over stoma. bilateral groins was prepped with chloroprep then draped in the usual sterile fashion. right radial was prepped with chloroprep then draped in the usual sterile fashion. Physician notified. Baseline sample Acquired. HR: 72 BPM. Equipment: 6F - Radial. ACIST Manifold Kit Model BT 2000. Cardiac Cath Pack. Heparinized Saline (2 units/mL), 1000 mL bag. Physician arrived. Physician scrubbed in. Immediate Pre-Procedure Time Out. Correct Patient: Yes; Correct Procedure: Yes; Correct Site: Yes; Correct Patient Position: Yes; Correct Supplies: Yes; Dried Flammable Prep: Yes; Blood Products Available: No;. Lidocaine 1% infiltrated to the right radial. Arterial access obtained. A 5 pitcairn islander TIG catheter in over wire. Multiple views taken of left coronary artery. Catheter redirected to the RCA. Multiple views taken of right coronary artery. Catheter out. 6 pitcairn islander XB 3.5 guide catheter was inserted over the wire. Pressure wire inserted into the Circumflex. An FFR value of 0.92 was obtained for a lesion located at Mid CX. Pressure wire removed. Guide catheter out. A TR Band was successful obtaining hemostatsis at the Right Radial artery insertion site. Post Procedure: Pulses reassessed and unchanged. PERRLA. Strong, equal hand rn palliative care bilaterally. No VTE prophylaxis required. Medication's Wasted: Heparin = 4000 units. Medication's Wasted: Lidocaine 1% = 18 mL. Medication's Wasted: Nitro = 49.8 mg. Medication's Wasted: Other = Adenosine 68 mL. Total IV fluids: 100 mL. Contrast type used: Omnipaque 300 mgI/mL, 500 mL bottle. Post-op diagnosis: Moderate disease. Complications: None. Estimated blood loss: 5mL-10mL. Procedure completed. Patient transferred by wheelchair to 1st floor. Vital chart was stopped. Access Site Site: Right Radial artery Sheath Size: 6 Fr Hemostasis Method: TR Band Hemostasis Success: Successful Procedure Medications Start: 3:33 PM Stop: 3:33 PM Medication: Versed Amount: 1 mg Route: I.V. Start: 3:33 PM Stop: 3:33 PM Medication: Fentanyl Amount: 50 mcg Route: I.V. Start: 3:52 PM Stop: 3:52 PM Medication: Heparin Amount: 2000 units Route: I.V. Start: 3:37 PM Stop: 3:37 PM Medication: Heparin Amount: 5000 units Route: I.V. I, the attending physician, have reviewed and verified all procedure medications. Yes, all medications given per verbal order History/Risk Factors Hypertension: Yes Dyslipidemia: Yes Peripheral Arterial Disease (PAD): No Myocardial Infarction ([place]): No Obesity: No Renal Disease: No Tobacco Use: Never Prior Interventions PCI: Yes CABG: No Valve Surgery: No Report Signatures Finalized by Yung Cordova MD on 06/01/2020 03:27 PM
--- NOTE | 2020-05-31 10:30 | PC.CHAP ---
Pastoral Care Encounter/Spiritual Assessment Type of Contact [] Declined rail car mechanic visit [] Patient/Family/Request visit [] Outpatient visit [] Follow-up visit [] Physician referral [] Code/Alert [x] Routine visit [] Staff referral [] Actively dying [] Patient sleeping [] Family support [] [] Out of room [] Palliative care [] [x] Receiving care in room [] Pre-surgical visit [] Trauma [] Long length of stay [] ICU visit [] Other: Relational/Emotional Strength [x] Patient feels connected with others/family/visitors/staff [] Distress [] Loneliness/isolation [] Abandonment Spirituality of Patient [x] Person of Katie [] Attends Amish of their Katie [x] Believes in Prayer [] Reads Bible or Evangelical materials [] There are Spiritual issues to be addressed Refinery Operator Helper Cracking Unit Interventions [x] Prayer [x] Active listening [x] Non-anxious presence [x] Spiritual/emotional support [] Crisis/trauma care [x] Spiritual counseling [] Bereavement support [] Provided bereavement packet [] Provided Bible/devotional materials [] Provided toy/stuffed animal, coloring book to patient or family member [] Provided Communion [] Anointing/[place] [] Salvation [x] Completed spiritual assessment [] Other: Impact on Illness or Injury [] Angry [] Fearful [x] Anxious [] Often cries [] Exhaustion [] Unable to work [] Unable to attend restoration [] Unable to walk/stand [] Unable to read [] Unable to drive [] Unable to eat/drink [] Unable to sleep [] Unable to be with family [] Patient intubated [] Other: Summary has blockage in ardery, will need a stent has a good attitude, wants to go home soon Time spent with patient 10 mins
--- NOTE | 2020-05-31 10:48 | PM.PN ---
Subjective Subjective: Interval history: Patient is doing well. Denies any chest pain, shortness of breath or palpitations. Patient underwent coronary angiogram today that revealed moderate disease LCx. As stress test was abnormal in this territory, FFR was used to verify ischemia. However FFR was normal and no intervention was performed. Vitals/I&O/Wt Last Vital Signs Temp 96.5 F L 05/31/20 10:44 Pulse 80 05/31/20 10:44 Resp 18 05/31/20 10:44 BP 111/77 05/31/20 10:44 Pulse Ox 94 05/31/20 10:44 05/30/20 05/31/20 05/31/20 22:59 06:59 14:59 Intake Total 480 / 720 100 / 820 120 / 120 Output Total 600 / 850 450 / 1300 Balance -120 / -130 -350 / -480 120 / 120 Weight last 48 hrs Weight 170 lb Physical Exam Narrative: EXAM NARRATIVE: GENERAL: Patient is alert, awake and oriented x3. [] NECK: No jugular vein distension. [] HEENT: No cyanosis. No icterus. No pallor. [] HEART: Regular S1 and S2. No murmur, rub or gallop. [] LUNGS: Has mild crackles laterally [] ABDOMEN: Soft, nontender and nondistended. Positive bowel sounds. No guarding, rebound or tenderness. [] CENTRAL NERVOUS SYSTEM: Grossly nonfocal. [] EXTREMITIES: Lower extremities with no edema bilaterally. Pulses palpable in the lower extremities, both dorsalis pedis and posterior tibial. [] Data : 05/31/20 04:33 05/31/20 04:33 Micro: Microbiology 05/29/20 18:00 Urine Culture - Preliminary Urine,Clean Catch Gram Negative Rods A&P Assessment and plan (1) Chest pain: Status: Acute (2) Frequent PVCs: Status: Acute (3) Coronary artery disease: Status: Acute (4) Hypertension: Status: Acute Patient has significant coronary artery disease history and presented with chest pain which was similar to his symptoms of [place] in the past. Stress test was abnormal. Patient underwent coronary angiogram today that revealed moderate disease LCx. As stress test was abnormal in this territory, FFR was used to verify ischemia. However FFR was normal and no intervention was performed. Plan for aggressive medical management Echocardiogram showed LV EF of 40 to 45%. Regional wall motion maladies cannot be assessed because of limited visualization. Continue aspirin, Plavix and statin Patient should be observed overnight as had a late procedure today and can be discharged tomorrow Thank you for involving us with care of this patient. We will continue to follow. Please call with questions Attestations Medical Necessity Statement*: Care expected to cross 2 midnights Coding Level of Care Code Acute Financial Services Associate for g Fwd Diagnoses Chest pain R07.9 Frequent PVCs I49.3 Coronary artery disease I25.10 Hypertension I10
--- NOTE | 2020-05-31 15:30 | W.PM.OPSUD ---
Surgery/Procedure H&P Update DATE OF PROCEDURE: May 31, 2020 DATE H&P PERFORMED: 05/29/20 H&P UPDATE INFORMATION: I have reviewed H&P completed within last 30 days, I have examined patient prior to procedure and No changes to prior documentation PREOP DIAGNOSIS: Chest pain/ abnormal stress test PRIMARY INDICATION FOR PROCEDURE: Chest pain/abnormal stress test PATIENT REASSESSED PRIOR TO SEDATION, WITH NO CHANGE NOTED: Yes PHYSICAL EXAM: alert, oriented x 3 and clear to auscultation bilaterally AIRWAY EVAL/ANESTHESIA PLAN: ASA IV, Risks, benefits & alternatives of sedation and/or procedure discussed and Patient agrees to continue as planned
--- NOTE | 2020-05-31 18:15 | PC.NURSE ---
notified Dr agee of patient blood pressures at this time instructions to give 500 ml bolus of Normal saline and hold this dose of coreg
[2020-05-31] MEDS: atorvastatin 40 mg Tablet 80 MG PO (18:27)
[2020-05-31] MEDS: phosphorus 250 mg Tablet PO (18:27)
--- NOTE | 2020-05-31 18:38 | PC.NURSE ---
patient asymptomatic with low bp and responding well to fluid bolus
[2020-06-01] MEDS: HYDROcodone-acetaminophen 5-325 mg Tablet 1 TAB PO ×2 (01:48→07:43)
--- NOTE | 2020-06-01 03:16 | PC.NURSE ---
NURSE NOTE: SHIFT SUMMARY: PT ALERT AND ORIENTED X4; MOVES ALL EXTREMITIES AND FOLLOWS COMMANDS. C/O BACK PAIN = 02/17 THIS SHIFT. TR BAND REMOVED AT APPROX 1999. GUAZE AND OPSITE APPLIED TO SITE. NO DRAINAGE NOTED. NO HEMATOMA NOTED. CURRENTLY RESTING WITH EYES CLOSED. ALL VS AND ASSESSMENTS CHARTED. BP SOFT WHEN PT LYING ON RIGHT SIDE. ELEVATES TO WNL WHEN LYING ON BACK OR SITTING UP. PAIN MEDICATIONS GIVEN ORDERED. NO DISTRESS AT THIS TIME.
[2020-06-01 03:48] VITALS: BP 92/54; PULSE 81; RESP 23; TEMP 36.8; O2SAT 94
[2020-06-01 05:25] VITALS: PULSE 79
[2020-06-01] MEDS: levothyroxine 125 mcg Tablet PO (06:06)
[2020-06-01 07:19] VITALS: BP 121/70; PULSE 85; RESP 19; TEMP 36.5; O2SAT 97
[2020-06-01] MEDS: clopidogrel 75 mg Tablet PO (07:42)
[2020-06-01] MEDS: tamsulosin 0.4 mg Capsule PO (07:42)
[2020-06-01] MEDS: carvedilol 3.125 mg Tablet PO (07:42)
--- NOTE | 2020-06-01 08:00 | PC.NURSE ---
Patient doing well this morning how ever is reporting pain 8/10 in back and requesting pain medications to control pain. norco 5/325 given for pain control.
--- NOTE | 2020-06-01 08:14 | PM.PN ---
Subjective Subjective: Interval history: Patient is doing well. No complaints of chest pain, shortness of breath or palpitations. He underwent coronary angiogram yesterday that showed moderate LCx disease. FFR was performed that was non ischemic. Medical management advised Vitals/I&O/Wt Last Vital Signs Temp 97.7 F 06/01/20 07:19 Pulse 85 06/01/20 07:19 Resp 19 H 06/01/20 07:19 BP 121/70 06/01/20 07:19 Pulse Ox 97 06/01/20 07:19 05/31/20 06/01/20 06/01/20 22:59 06:59 14:59 Intake Total 120 / 240 Output Total 450 / 450 350 / 800 150 / 150 Balance -330 / -210 -350 / -560 -150 / -150 Physical Exam Narrative: EXAM NARRATIVE: GENERAL: Patient is alert, awake and oriented x3. [] NECK: No jugular vein distension. [] HEENT: No cyanosis. No icterus. No pallor. [] HEART: Regular S1 and S2. No murmur, rub or gallop. [] LUNGS: Has mild crackles laterally [] ABDOMEN: Soft, nontender and nondistended. Positive bowel sounds. No guarding, rebound or tenderness. [] CENTRAL NERVOUS SYSTEM: Grossly nonfocal. [] EXTREMITIES: Lower extremities with no edema bilaterally. Pulses palpable in the lower extremities, both dorsalis pedis and posterior tibial. [] Data : 05/31/20 04:33 05/31/20 04:33 Micro: Microbiology 05/29/20 18:00 Urine Culture - Preliminary Urine,Clean Catch Gram Negative Rods A&P Assessment and plan (1) Chest pain: Status: Acute (2) Frequent PVCs: (3) Coronary artery disease: Status: Acute (4) Hypertension: Patient has significant coronary artery disease history and presented with chest pain which was similar to his symptoms of [place] in the past. Stress test was abnormal. Patient underwent coronary angiogram yesterday that revealed moderate disease of LCx. As stress test was abnormal in this territory, FFR was used to verify ischemia. However FFR was normal and no intervention was performed. Plan for aggressive medical management Echocardiogram showed LV EF of 40 to 45%. Regional wall motion maladies cannot be assessed because of limited visualization. Continue aspirin, Plavix and statin Patient is ready to be discharged home today Thank you for involving us with care of this patient. Please call with questions Attestations Medical Necessity Statement*: Care expected to cross 2 midnights Coding Level of Care Code Acute General Office Dispatcher for Asif Mcdonnell Diagnoses Chest pain R07.9 Frequent PVCs I49.3 Coronary artery disease I25.10 Hypertension I10
[2020-06-01] MEDS: phosphorus 250 mg Tablet PO (09:05)
--- NOTE | 2020-06-01 09:19 | P.DS_ITS ---
Discharge Providers Date of Admission: 05/30/20 15:47 Date of Discharge: June 01, 2020 Attending Provider at Admission: Juan Knox Attending Provider at Discharge: Juan Knox Primary Care Provider: Chante Sahni NP Diagnoses at Discharge Discharge Diagnosis (1) Chest pain: Status: Acute (2) Frequent PVCs: Status: Acute (3) Coronary artery disease: Status: Acute (4) Hypertension: Status: Acute Reason for Visit Reason for Visit: CHEST PAIN Hospital Course Hospital Course Patient has significant coronary artery disease history and presented with chest pain which was similar to his symptoms of [place] in the past. Stress test was abnormal. Patient underwent coronary angiogram that revealed moderate disease L Cx. As stress test was abnormal in this territory, FFR was used to verify ischemia. However FFR was normal and no intervention was performed. Plan for aggressive medical management. Echocardiogram showed LV EF of 40 to 45%. Regional wall motion maladies cannot be assessed because of limited visualization. Continue aspirin, Plavix and statin Discharge diagnoses and problem Chest pain secondary to acute coronary syndrome/coronary artery disease. Doing well. The pain has currently resolved. Cleared by the analytical scientist for discharge home. The patient is eager to go home. Congestive heart failure. Stable. No evidence of exacerbation. Mild hypotension present in ER. Received a bolus of IV fluids. Currently resolved. Does not have evidence of infection or sepsis. Hypokalemia. Replaced. Anemia. Probably chronic. Stable. Continue monitoring. History of dyslipidemia. Well-controlled. Continue Lipitor. Bilateral pulmonary nodules concerning for metastatic lesions. Discussed with the patient and his on admission and at discharge. I asked them to follow- up with the primary oncologist who is in [place]. They are also aware about adrenal mass for which they have follow-up appointment arranged with the primary care provider. They stated that they can make an appointment for the next week. Discussed with the nurse. She will make copy of his records from this hospitalization. We will make a CD with the copy of the imaging studies for his oncology team in [place]. Physical Exam Narrative: EXAM NARRATIVE: The patient is awake alert and oriented. No acute distress. Mood and affect are appropriate. Responses are adequate. Skin is warm and dry. Moist mucous membranes Neck supple. No JVD Lungs slightly coarse breath sounds at the bases. No significant crackles. No respiratory distress. Heart S1, S2, regular Abdomen soft, nontender, bowel sounds are present Extremities trace edema and venous stasis. No calf tenderness bilaterally. No cyanosis. Normal capillary refill. Neuro examination is nonfocal. Discharge Data Data Completed and Pending: Completed Studies During Hospitalization Category Date Time Status CT angio chest PE protcl [id number] Stat Cat Scan 05/29/20 14:[address] MIBI [Sestamibi Stress Test Reque st Exams 05/30/20 06:47 Draft ] Routine XR chest 1V emir ble [id number] Stat Exams 05/29/20 13:09 Completed NM kimberlyn perf SPECT r/s* [id number] Routin e Nuc Med 05/30/20 08:00 Completed CV echo complete* [id number] Urgent Ultrasound 05/30/20 17:34 Completed Pending at discharge Category Date Time Status SITE WORKER request for service Routin e Exams 05/31/20 09:29 Taken Urine Culture Sta t Lab 05/29/20 18:00 Results Vitals: Last Vital Signs Temp 97.7 F 06/01/20 07:19 Pulse 85 06/01/20 07:19 Resp 19 H 06/01/20 07:19 BP 121/70 06/01/20 07:19 Pulse Ox 97 06/01/20 07:19 Discharge Plan Discharge Patient Disposition: Home Condition: Stable Prescriptions: Continued latanoprost 0.005 % drops 1 drp ophthalmic (eye) EVERY OTHER DAY RF: 0 ibuprofen 800 mg tablet 800 mg PO TID PRN (Reason: Pain) RF: 0 clopidogrel 75 mg tablet 75 mg PO DAILY@08 RF: 0 carvedilol 3.125 mg tablet 3.125 mg PO BID@08,19 RF: 0 tamsulosin 0.4 mg capsule 0.4 mg PO DAILY@08 RF: 0 levothyroxine 125 mcg tablet 125 mcg PO DAILY@06 RF: 0 lisinopril 2.5 mg tablet 5 mg PO DAILY@08 RF: 0 rosuvastatin 40 mg tablet 40 mg PO DAILY@19 RF: 0 Changed aspirin 81 mg Tablet,Delayed Release (Dr/Ec) 324 mg PO DAILY Qty: 0 RF: 0 Discharge Orders: Discharge Order (Routine); Ordered 06/01/20 Ordered By: Juan Knox Referrals: Chante Sahni NP [Primary Care Provider] - Discharge Diet: Usual diet Discharge Activity: Increase activity as tolerated Patient Instructions: Left Heart Catheterization (DC), Right Heart Catheterization (DC) Activity Restrictions/Additional Instructions: Please follow-up with your oncologist in [place] next week and discuss pulmonary nodules and other findings from this hospitalization. Please come back to emergency room if develop any new chest pain, shortness of breath, diaphoresis, dizziness or lightheadedness, weakness, or any other new complaints. Discharge Attestations Time Spent in Discharge Care*: less than 30 min Quality Metrics Clinical Quality Measures During this hospital stay, did patient experience: None Coding Level of Care Code Acute Mold Preparer for Chg Fwd Diagnoses Chest pain R07.9 Frequent PVCs I49.3 Coronary artery disease I25.10 Hypertension I10
[2020-06-01 09:39] VITALS: BP 121/70; PULSE 85; RESP 19; TEMP 36.5; O2SAT 97
[2020-06-01 11:03] VITALS: BP 92/50; PULSE 75; RESP 12; TEMP 36.7; O2SAT 95
--- NOTE | 2020-06-01 12:05 | PC.NURSE ---
patient discharged home at this time, patient provided with discharge instructions and education as well as follow up care instructions and appointments, patient verbalized understanding of all instructions provided. IV discontinued with cath intact min bleeding noted. patient assisted to private vehicle by staff and significant other via wheel chair. Patient in possession of all belongings and discharge instructions. patient alert oriented and in stable condition upon departure.
== END 2020-06-01 12:05 | disposition home or self-care (01) | DRG 287 ==
LOC: ER 16:35 → CSU 18:39
PROVIDERS: Internal Medicine; Admitting Provider Internal Medicine; Emergency Provider Family Medicine; PCP Nurse Practitioner Family; Visit Provider Internal Medicine
DX: I25.10 Atherosclerotic heart disease of native coronary artery without angina pectoris (principal); R07.9 Chest pain, unspecified; I49.3 Ventricular premature depolarization; Z95.5 Presence of coronary angioplasty implant and graft; Z95.1 Presence of aortocoronary bypass graft; Z95.0 Presence of cardiac pacemaker; I50.9 Heart failure, unspecified; I11.0 Hypertensive heart disease with heart failure; Z85.21 Personal history of malignant neoplasm of larynx; E78.5 Hyperlipidemia, unspecified; E03.9 Hypothyroidism, unspecified; I95.9 Hypotension, unspecified; E87.6 Hypokalemia; D64.9 Anemia, unspecified; R91.8 Other nonspecific abnormal finding of lung field; E27.9 Disorder of adrenal gland, unspecified; I25.2 Old myocardial infarction; Z79.02 Long term (current) use of antithrombotics/antiplatelets
CPT/HCPCS: 12345; 36415; 71045; 71275; 78452; 80048; 80053; 80061; 80069; 81001; 82550; 83735; 83880; 84145; 84484; 85025; 85378; 87077; 87086; 87186; 87426; 93005; 93017; 93306; 93454; 93571; 99283; A9500; C1769; C1887; C1894; G0378; J0153; J1644; J2250; J2785; J3010; J3490; J7030; Q9967